=== PATIENT | female | born 1940 | race Caucasian/White ===

== ENCOUNTER 2017-11-16 12:36 | Inpatient (IN) | payer MEDICARE, OTHER ==
[~2017-11-16] VITALS: Ht 157.5 cm; Wt 68.0 kg
[~2017-11-16 12:36] MED LIST: ATOR10TA87 PO; CARV-50 PO; PIOG1TAB9 PO
[2017-11-16 13:07] LABS: BASOPHILS % (AUTO) 0.3 % (0-1); EOSINOPHILS # (AUTO) 0.1 X10'3 (0-0.9); EOSINOPHILS % (AUTO) 1.8 % (0-6); HEMATOCRIT 39.9 % (35.0-45.0); HEMOGLOBIN 13.6 g/dl (12.0-16.0); LYMPHOCYTES # (AUTO) 1.1 X10'3 (1.1-4.8); LYMPHOCYTES % (AUTO) 18.6 % (21-51); MEAN CORPUSCULAR HEMOGLOBIN 30.5 PG (27.0-31.0); MEAN CORPUSCULAR VOLUME 89.8 FL (78-98); MONOCYTES # (AUTO) 0.5 X10'3 (0-0.9); MONOCYTES % (AUTO) 8.7 % (2-12); NEUTROPHILS # (AUTO) 4.2 X10'3 (1.8-7.7); NEUTROPHILS % (AUTO) 70.6 % (42-75); PLATELET COUNT 246 X10'3 (140-440); RED BLOOD COUNT 4.44 X10'6 (4.20-5.60); RED CELL DISTRIBUTION WIDTH 13.4 % (11.5-14.5)
[2017-11-16 13:18] LABS: PARTIAL THROMBOPLASTIN TIME 26 SECONDS (22-32); PROTHROMBIN TIME 10.2 SECONDS (9.0-12.0)
[2017-11-16 13:39] LABS: ALANINE AMINOTRANSFERASE 23 U/L (12-78); ALBUMIN 3.7 G/DL (3.4-5.0); ALKALINE PHOSPHATASE 61 IU/L (46-116); ANION GAP 9 (8-16); ASPARTATE AMINO TRANSFERASE 18 U/L (10-37); BILIRUBIN,TOTAL 0.9 MG/DL (0.1-1.0); BLOOD UREA NITROGEN 19 MG/DL (7-18); BUN/CREATININE RATIO 26.8 (6.6-38.0); CALCIUM 10.6 MG/DL (8.5-10.1); CHLORIDE 96 MMOL/L (99-107); CREATININE 0.71 MG/DL (0.40-0.90); GLUCOSE 128 MG/DL (70-104); POTASSIUM 4.8 MMOL/L (3.5-5.1); SODIUM 130 MMOL/L (135-145); TOTAL CARBON DIOXIDE 25.3 MMOL/L (24-32); TOTAL PROTEIN 7.3 G/DL (6.4-8.2); eGFR 80 ML/MIN
[2017-11-16] MEDS ORDERED: metoprolol tartrate 50mg tablet PO ONE (15:50)
[2017-11-16] MEDS ORDERED: aspirin 81mg tab.chew PO ONE (15:50)
[2017-11-16] MEDS ORDERED: LOSA25TA96 PO (16:59)
[2017-11-16] MEDS ORDERED: ASPI-920 PO (16:59)
[2017-11-16] MEDS ORDERED: METF850T2 PO (16:59)
[2017-11-16] MEDS ORDERED: TURM500C4 PO (17:04)
[2017-11-16] MEDS ORDERED: sodium chloride 0.45% 1,000 ML IV SCH (17:49)
[2017-11-16] MEDS ORDERED: magnesium Cl slow-release 64mg tablet PO PRN (17:50)
[2017-11-16] MEDS ORDERED: acetaminophen 325mg tablet PO PRN (17:50)
[2017-11-16] MEDS ORDERED: magnesium 4gm in 100ml NS 100 ML IV PRN (17:50)
[2017-11-16] MEDS ORDERED: mag hydrox/Alum hydrox/simeth 30ml oral suspension PO PRN (17:50)
[2017-11-16] MEDS ORDERED: potassium Cl 20 mEq SR tablet PO PRN ×2 (17:50)
[2017-11-16] MEDS ORDERED: HYDROcodone/acetaminophen 10/325mg tab PO PRN (17:50)
[2017-11-16] MEDS ORDERED: magnesium 2GM in 50ml NS 50 ML IV PRN (17:50)
[2017-11-16] MEDS ORDERED: ondansetron/PF 4mg/2ml inj IV PRN (17:50)
[2017-11-16] MEDS ORDERED: morphine 4 MG/ML inj SYRINge IV PRN ×2 (17:50)
[2017-11-16] MEDS ORDERED: magnesium hydroxide 30ml (MOM) UD suspension PO PRN (17:50)
[2017-11-16] MEDS ORDERED: potassium Cl 40MEQ/NS 500ml 500 ML IV PRN ×2 (17:50)
[2017-11-16] MEDS ORDERED: bisacodyl 10mg suppository rectal RC PRN (17:50)
[2017-11-16] MEDS ORDERED: HYDROcodone/acetaminophen 5mg/325mg tablet PO PRN (17:50)
[2017-11-16] MEDS ORDERED: LORazepam 2 mg/ml vial IV PRN (17:55)
[2017-11-16] MEDS ORDERED: hydrALAZINE 20mg/ml inj. IV PRN (17:55)
[2017-11-16] MEDS ORDERED: losartan 25mg tablet PO SCH (17:55)
[2017-11-16] MEDS ORDERED: nitroGLYCERIN 0.4mg SUBLingual tab SL PRN ×2 (17:55→18:00)
[2017-11-16] MEDS ORDERED: dextrose ORAL solution 15 GM/59 ML bottle PO PRN ×2 (18:00)
[2017-11-16] MEDS ORDERED: MESSAGE TO PHARMACY PO ONE (18:00)
[2017-11-16] MEDS ORDERED: aminophylline 250mg/10ml inj. IV PRN (18:00)
[2017-11-16] MEDS ORDERED: metoprolol tartrate 1mg/ml inj IV PRN (18:00)
[2017-11-16] MEDS ORDERED: insulin Lispro (HumaLOG) vial - multi-dose SQ SCH (18:00)
[2017-11-16] MEDS ORDERED: regadenoson 0.4mg/5ml syringe IV ONE (18:00)
[2017-11-16] MEDS ORDERED: dextrose 50%-water 50ml dispensing syringe IV PRN ×2 (18:00)
[2017-11-16] MEDS ORDERED: glucagon, human recombinant 1mg kit SUBCUT PRN (18:00)
[2017-11-16 19:22] LABS: HEMOGLOBIN A1C 6.6 % (4.5-6.2)
[2017-11-16] MEDS ORDERED: regadenoson 0.4mg/5ml syringe IV PRN (19:25)
[2017-11-16] MEDS ORDERED: carVEDilol 12.5mg tablet PO SCH (20:00)
[2017-11-16] MEDS: docusate sod 100mg capsule PO SCH (20:05)
[2017-11-17] VITALS (11 sets, daily range): BP systolic 151–184; BP diastolic 63–161
[2017-11-17 01:21] LABS: BASOPHILS % (AUTO) 0.6 % (0-1); EOSINOPHILS # (AUTO) 0.1 X10'3 (0-0.9); EOSINOPHILS % (AUTO) 2.2 % (0-6); HEMATOCRIT 35.5 % (35.0-45.0); LYMPHOCYTES # (AUTO) 1.7 X10'3 (1.1-4.8); LYMPHOCYTES % (AUTO) 33.1 % (21-51); MEAN CORPUSCULAR HEMOGLOBIN 30.1 PG (27.0-31.0); MEAN CORPUSCULAR HGB CONC 33.8 % (33.0-36.5); MEAN PLATELET VOLUME 8.2 FL (7.4-10.4); MONOCYTES # (AUTO) 0.7 X10'3 (0-0.9); MONOCYTES % (AUTO) 12.7 % (2-12); NEUTROPHILS # (AUTO) 2.8 X10'3 (1.8-7.7); NEUTROPHILS % (AUTO) 51.4 % (42-75); PLATELET COUNT 200 X10'3 (140-440); RED BLOOD COUNT 3.98 X10'6 (4.20-5.60); RED CELL DISTRIBUTION WIDTH 12.9 % (11.5-14.5); WHITE BLOOD COUNT 5.3 X10'3 (4.5-11.0)
[2017-11-17 01:31] LABS: ALBUMIN 3.1 G/DL (3.4-5.0); ANION GAP 8 (8-16); BLOOD UREA NITROGEN 23 MG/DL (7-18); BUN/CREATININE RATIO 31.9 (6.6-38.0); CALCIUM 10.4 MG/DL (8.5-10.1); CHLORIDE 101 MMOL/L (99-107); CHOL/HDL RATIO 2.1 (0.00-4.99); CHOLESTEROL 107 MG/DL (0-200); CREATININE 0.72 MG/DL (0.40-0.90); GLUCOSE 99 MG/DL (70-104); HDL CHOLESTEROL 50 MG/DL (35-60); LDL CHOLESTEROL 43 MG/DL (50-100); MAGNESIUM 1.6 MG/DL (1.5-2.4); POTASSIUM 4.3 MMOL/L (3.5-5.1); SODIUM 134 MMOL/L (135-145); TOTAL CARBON DIOXIDE 24.7 MMOL/L (24-32); TRIGLYCERIDES 139 MG/DL (20-135); eGFR 78 ML/MIN
[2017-11-17] MEDS ORDERED: enoxaparin 40mg/0.4ml syringe SUBCUT SCH (08:00)
[2017-11-17] MEDS ORDERED: non-formulary drug (Aspirin (Aspirin Chewable) 81 MG) PO SCH (08:00)
[2017-11-17] MEDS ORDERED: K and/or MAG REPLACEMENT MC SCH (08:00)
[2017-11-17] MEDS ORDERED: aspirin 81mg tablet.DR PO SCH (08:00)
[2017-11-17] MEDS ORDERED: regadenoson 0.4mg/5ml syringe IV ONE (09:27)
[2017-11-17] MEDS ORDERED: metoprolol tartrate 1mg/ml inj IV ONE (09:43)
[2017-11-17] MEDS ORDERED: losartan 50mg tablet PO SCH (11:20)
[2017-11-17] MEDS ORDERED: carvedilol 6.25mg tablet PO SCH (11:20)
[2017-11-17] MEDS: docusate sod 100mg capsule PO SCH (12:07)
== END 2017-11-17 15:00 | disposition home or self-care (01) | DRG 641 ==
LOC: ER 12:36 → ED HOLD 17:49
PROVIDERS: ADMIT Internal Medicine; ATTEND Internal Medicine
PROC: 4A02XM4 Measurement of Cardiac Total Activity, External Approach (ICD-10-PCS; principal; 2017-11-17)
PROC: 3E073KZ Introduction of Other Diagnostic Substance into Coronary Artery, Percutaneous Approach (ICD-10-PCS; 2017-11-17)
DX: E86.0 Dehydration (principal); E11.9 Type 2 diabetes mellitus without complications; I20.0 Unstable angina; E87.1 Hypo-osmolality and hyponatremia; I16.0 Hypertensive urgency; F41.9 Anxiety disorder, unspecified; I10 Essential (primary) hypertension; R74.8 Abnormal levels of other serum enzymes; Z79.82 Long term (current) use of aspirin; Z79.84 Long term (current) use of oral hypoglycemic drugs; Z79.899 Other long term (current) drug therapy
CPT/HCPCS: 36415; 71045; 71250; 78452; 80048; 80053; 80061; 82948; 83036; 83735; 84484; 85025; 85610; 85730; 87070; 93005; 93017; 93306; 99285; A9500; J1650; J2060; J3490; J7030

== ENCOUNTER 2020-01-07 17:53 | Emergency (ER) | payer MEDICARE, OTHER ==
[~2020-01-07] VITALS: Ht 157.5 cm; Wt 75.0 kg
[~2020-01-07 17:53] MED LIST changes: +ASPI-920 PO; +LOSA25TA96 PO; +METF-951 PO; -PIOG1TAB9 PO
[2020-01-07] MEDS ORDERED: ZINC220C11 PO (18:51)
[2020-01-07] MEDS ORDERED: MAGN250T11 PO (18:51)
[2020-01-07] MEDS ORDERED: ASCO500C17 PO (18:52)
[2020-01-07 19:00] LABS: BASOPHILS % (AUTO) 0.7 % (0-1); EOSINOPHILS # (AUTO) 0.1 X10'3 (0-0.9); HEMATOCRIT 39.9 % (35.0-45.0); HEMOGLOBIN 13.5 g/dl (12.0-16.0); LYMPHOCYTES # (AUTO) 1.3 X10'3 (1.1-4.8); LYMPHOCYTES % (AUTO) 23.3 % (21-51); MEAN CORPUSCULAR HEMOGLOBIN 31.7 PG (27.0-31.0); MEAN CORPUSCULAR HGB CONC 33.9 g/dL (33.0-36.5); MEAN CORPUSCULAR VOLUME 93.5 FL (78-98); MEAN PLATELET VOLUME 8.2 FL (7.4-10.4); MONOCYTES # (AUTO) 0.6 X10'3 (0-0.9); MONOCYTES % (AUTO) 10.7 % (2-12); NEUTROPHILS # (AUTO) 3.6 X10'3 (1.8-7.7); NEUTROPHILS % (AUTO) 64.3 % (42-75); PLATELET COUNT 243 X10'3 (140-440); RED BLOOD COUNT 4.27 X10'6 (4.20-5.60); RED CELL DISTRIBUTION WIDTH 12.5 % (11.5-14.5); WHITE BLOOD COUNT 5.6 X10'3 (4.5-11.0)
[2020-01-07 19:17] LABS: ALANINE AMINOTRANSFERASE 23 U/L (12-78); ALBUMIN 3.7 G/DL (3.4-5.0); ALBUMIN/GLOBULIN RATIO 1.1 (1.1-1.5); ALKALINE PHOSPHATASE 41 IU/L (46-116); ANION GAP 9 (8-16); ASPARTATE AMINO TRANSFERASE 19 U/L (10-37); BILIRUBIN,TOTAL 1.5 MG/DL (0.1-1.0); BLOOD UREA NITROGEN 9 MG/DL (7-18); BUN/CREATININE RATIO 10.6 (6.6-38.0); CALCIUM 9.9 MG/DL (8.5-10.1); CHLORIDE 98 MMOL/L (99-107); CREATININE 0.85 MG/DL (0.40-0.90); GLUCOSE 133 MG/DL (70-104); POTASSIUM 4.5 MMOL/L (3.5-5.1); SODIUM 132 MMOL/L (135-145); eGFR 64 ML/MIN
[2020-01-07] MEDS ORDERED: pantoprazole IV 80 MG in normal saline 100ml IV soln 100 ML IV ONE ×4 (20:05)
[2020-01-07] MEDS ORDERED: ondansetron/PF 4mg/2ml inj IV ONE (20:05)
[2020-01-07 20:17] VITALS: BP 149/81
== END 2020-01-07 20:22 | disposition home or self-care (01) ==
LOC: ER 17:55
DX: I49.1 Atrial premature depolarization (principal); I10 Essential (primary) hypertension; E11.9 Type 2 diabetes mellitus without complications; Z79.82 Long term (current) use of aspirin; Z79.899 Other long term (current) drug therapy
CPT/HCPCS: 36415; 71045; 80053; 84484; 85025; 93005; 99283; 99285